=== PATIENT | female | born 1965 | race Caucasian/White ===

== ENCOUNTER 2017-02-19 20:09 | Emergency (ER) | payer OTHER ==
[~2017-02-19] VITALS: Ht 160 cm; Wt 81.1 kg
[~2017-02-19 20:09] MED LIST: CETICHW4 PO; ESTR0.3T PO; FLNIN NAE; LINA1CAP PO; [UNRECOGNIZED DRUG - CODE] PO
[2017-02-19 20:28] VITALS: TEMP 36.8; Ht 160 cm; Wt 81.1 kg
[2017-02-19] MEDS ORDERED: OMEP40CA41 PO (21:13)
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
[2017-02-19 22:57] VITALS: BP 150/87; PULSE 57; O2SAT 97
== END 2017-02-19 22:57 | disposition home or self-care (01) ==
LOC: C.EDB 20:10 → C.EDD 22:57
DX: M54.2 Cervicalgia (principal); M79.661 Pain in right lower leg; V43.52XA Car driver injured in collision with other type car in traffic accident, initial encounter; J45.909 Unspecified asthma, uncomplicated; Z79.899 Other long term (current) drug therapy; Z80.9 Family history of malignant neoplasm, unspecified; Z83.3 Family history of diabetes mellitus; Z83.79 Family history of other diseases of the digestive system; Z82.49 Family history of ischemic heart disease and other diseases of the circulatory system